=== PATIENT | male | born 1995 ===

== ENCOUNTER 2017-05-03 16:36 | Emergency (ER) | payer OTHER ==
[2017-05-03] MEDS ORDERED: Sodium Chloride 0.9% 1,000 ML IV STA (17:14)
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
[2017-05-03 18:15] LABS: BASO % 0.3 % (0.0-2.0); EOS % 0.3 % (0.0-4.0); HEMOGLOBIN 14.9 g/dL (12.0-18.0); LYMPH # 1.6 K/uL (1.0-4.3); LYMPH % 11.3 % (20.0-40.0); MEAN CELL VOLUME 91.9 fl (80.0-94.0); MEAN CORPUSCULAR HEMOGLOBIN 30.4 pg (27.0-31.0); MEAN CORPUSCULAR HGB CONC 33.1 g/dL (33.0-37.0); MONO # 0.8 K/uL (0.0-0.8); MONO % 5.8 % (0.0-10.0); NEUT # 11.8 K/uL (1.8-7.0); NEUT % 82.3 % (50.0-75.0); RBC 4.9 Mil/uL (4.40-5.90); RED CELL DISTRIBUTION WIDTH 12.6 % (11.5-14.5); WHITE BLOOD COUNT 14.3 K/uL (4.8-10.8)
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
[2017-05-03 18:40] LABS: BLOOD UREA NITROGEN 15 mg/dl (9-20); GFR AFRICAN-AMERICAN > 60; GFR NON-AFRICAN AMERICAN > 60
[2017-05-03 18:41] LABS: ALB/GLOB RATIO 1.3 (1.0-2.1); ALBUMIN 4.7 g/dL (3.5-5.0); ALT/SGPT 37 U/L (21-72); AST/SGOT 48 U/L (17-59); CALCIUM 9.5 mg/dL (8.4-10.2)
[2017-05-03] MEDS ORDERED: Ampicillin/Sulbactam 3 GM in Sodium Chloride 0.9% 100 ML IVPB STA (19:49)
[2017-05-03 21:45] VITALS: BP 152/74; PULSE 81; RESP 18; TEMP 97.8; O2SAT 98
== END 2017-05-03 22:11 | disposition short-term general hospital (02) ==
LOC: H.ER 16:36
DX: S09.90XA Unspecified injury of head, initial encounter (principal); S02.80XA Fracture of other specified skull and facial bones, unspecified side, initial encounter for closed fracture; Y04.0XXA Assault by unarmed brawl or fight, initial encounter; Y92.89 Other specified places as the place of occurrence of the external cause